=== PATIENT | female | born 1955 | race Caucasian/White ===

== ENCOUNTER 2017-10-15 09:34 | Day surgery (SDC) | payer OTHER, SELFPAY ==
[2017-10-15] VITALS (11 sets, daily range): BP systolic 98–119; BP diastolic 50–78; PULSE 54–85; RESP 12–16; TEMP 36.2–36.9; O2SAT 96–100
--- NOTE | 2017-10-15 | DI.CT.S_ITS ---
PROCEDURE: CT BIOPSY LUNG LT Sedation analgesia for 20 minutes. INDICATIONS: LUNG MASS TECHNIQUE: The indications, alternatives, benefits, risks, and possible complications of the procedure were communicated to the patient. Informed written consent from the patient was obtained and placed in the chart. Continuous EKG and hemodynamic monitoring was started by trained personnel. The patient was brought to the CT suite and career development director spiral CT imaging was performed with localization grid. The appropriate site for percutaneous access to the biopsy target was marked, was prepped and draped sterilely, and was infused with local anaesthesia. Under CT guidance, a core biopsy trocar and needle set was advanced to the biopsy target, and specimen(s) were obtained. The trocar and needle were then removed, and the patient was sent for post-procedure monitoring. COMPARISON: None. FINDINGS: Biopsy site: Left apical lung mass Needle: 20 gauge Temno biopsy needle with introducer trocar. Number of passes: 5 Medications: 1% lidocaine for local anaesthesia. 50 mcg IV Fentanyl and 1.0 mg Versed for conscious sedation for 20 minutes (see nursing record). Complications: None. IMPRESSION: Successful CT-guided biopsy of left apical lung mass. Histopathology pending. No immediate complications. Post biopsy CT scanning revealed no pneumothorax. A 2-1/2 hour delayed chest x-ray reveals no delayed pneumothorax. Patient was asymptomatic and released to home with precautions Dictated by: Chace Witt M.D. on 10/15/2017 at 14:06 Approved by: Chace Witt M.D. on 10/15/2017 at 14:09
--- NOTE | 2017-10-15 | PATH_ITS ---
[facility] Accession Number: [id number] . 01 Material submitted: . LEFT UPPER LUNG MASS . 02 Diagnosis: Left Upper Lung Mass, Needle Core Biopsies: Adenocarcinoma, poorly differentiated, most consistent with lung primary. MRV/10/20/2017 . 02 Comment: As part of routine air quality chemist, Dr. Peguero has reviewed this case and agrees with the above interpretation. Molecular studies will be performed and results issued in an addendum. . The preliminary diagnosis of carcinoma was reported to Dr. Witt's colleague, Dr. Frausto, by Dr. Claudio Givens on 10/17/2017. . 02 Electronically signed: . Claudio Givens MD, PhD, Pathologist NPI- [id number] . 01 Gross description: . LEFT UPPER LUNG MASS: Received in formalin are 4 fragment(s) of davis, soft tissue measuring 1.7 x 0.1 x 0.1 cm to 1.0 x 0.1 x 0.1 cm submitted entirely in 1 cassette(s) /TRC /TRC . 02 Microscopic: . Sections are of fibrotic stroma infiltrated by atypical epithelioid cells in a nested and single cell growth pattern, consistent with carcinoma. To further evaluate the carcinoma cells, a limited panel of immunohistochemical stains are performed, each with an appropriately positive control, with the following results: . TTF-1: Positive. Napsin-A: Positive. CK5/6: Variable, weak. p40: Negative. . The overall morphology and immunophenotype are most consistent with poorly differentiated adenocarcinoma of lung origin. . * This test was developed and its performance characteristics determined by [facility]. It has not been cleared or approved by the U.S. Food and Drug Administration. The FDA has determined that such clearance or approval is not necessary. This test is used for clinical purposes. It should not be regarded as investigational or for research. . 02 Pathologist provided ICD-10: C34.12 . 02 CPT . 470477, P13090, [id number] Performed at: 01 [facility] [address] [id number] MD Jamie Davies MD Phone: [phone] Performed at: 02 [facility] [address] [place] [id number] MD Eder Cleaning MD Phone: [phone]
--- NOTE | 2017-10-15 | DI.RAD.S_ITS ---
PROCEDURE: XR CHEST 1V INDICATIONS: s/p lung bx TECHNIQUE: One view of the chest was acquired. COMPARISON: Outside Facility, RG, XR CXR 3V, 09/29/2017, 17:50. FINDINGS: Surgical changes and devices: None. Lungs and pleura: No pleural effusions or pneumothorax. No evidence of intrathoracic hemorrhage. Lobulated mass in the left upper lobe is unchanged. Pulmonary hyperexpansion again noted. Mediastinum: Mediastinal contours appear normal. Heart size is normal. Bones and chest wall: No suspicious bony lesions. Overlying soft tissues appear unremarkable. IMPRESSION: 1. Delayed imaging post needle biopsy of the left upper lobe mass is negative for pneumothorax. 2. Lobulated left apical/upper lobe mass lesion appears unchanged from 09/29/2017. Histopathology pending. 3. Probable COPD. Dictated by: Chace Witt M.D. on 10/15/2017 at 13:03 Approved by: Chace Witt M.D. on 10/15/2017 at 13:10
--- NOTE | 2017-10-15 13:21 | SUR.PHASEII ---
1245 pt to xray via wheel chair. 1310 pt returned from xray and is sitting in bed. Orthostatic BP's taken per Radiologist's request and WNL
== END 2017-10-15 13:28 ==
LOC: OR 09:35
PROVIDERS: Visit Provider Radiology Therapeutic Radiology
PROC: BB24ZZZ Computerized Tomography (CT Scan) of Bilateral Lungs (ICD-10-PCS; CPT 32408; principal; 2017-10-15 10:30)
DX: C34.12 Malignant neoplasm of upper lobe, left bronchus or lung (principal); C79.31 Secondary malignant neoplasm of brain
CPT/HCPCS: 32405; 71045; 77012

== ENCOUNTER → 2024-06-02 13:27 | Outpatient (CLI) | payer MEDICARE, SELFPAY ==
--- NOTE | 2024-06-02 13:31 | DI.US.S_ITS ---
PROCEDURE: US ART LOW EXT BILAT W/MARCOS INDICATIONS: TECHNIQUE: Color and pulse Doppler interrogation was performed of both lower extremity arterial systems, with image documentation. COMPARISON: None. FINDINGS: Right lower extremity: Common femoral artery: 100 cm/sec, with triphasic flow. Deep femoral artery: 73 cm/sec, with triphasic flow. Proximal superficial femoral artery: 56 cm/sec, with triphasic flow. Mid superficial femoral artery: 87 cm/sec, with triphasic flow. Distal superficial femoral artery: 46 cm/sec, with triphasic flow. Popliteal artery: 58 cm/sec, with triphasic flow. Posterior tibial artery: 24 cm/sec, with biphasic flow. Anterior tibial artery/dorsalis pedis: 32 cm/sec, with biphasic flow. Smith-scale imaging description: Mild degree of plaque scattered throughout the right lower extremity arterial system. MARCOS: 1.0 Left lower extremity: Common femoral artery: 60 cm/sec, with triphasic flow. Deep femoral artery: 62 cm/sec, with triphasic flow. Proximal superficial femoral artery: 70 cm/sec, with triphasic flow. Mid superficial femoral artery: 69 cm/sec, with triphasic flow. Distal superficial femoral artery: 49 cm/sec, with triphasic flow. Popliteal artery: 50 cm/sec, with triphasic flow. Posterior tibial artery: 51 cm/sec, with triphasic flow. Anterior tibial artery/dorsalis pedis: 53 cm/sec, with triphasic flow. Smith-scale imaging description: Mild degree of plaque scattered throughout the left lower extremity arterial system MARCOS: 1.1 IMPRESSION: No hemodynamically significant stenosis involving bilateral lower extremities. Normal bilateral ABIs. Dictated by: Yifan Spencer M.D. on 06/02/2024 at 16:39 Approved by: Yifan Spencer M.D. on 06/02/2024 at 16:42
== END ==
LOC: US 13:30
PROVIDERS: Referring Provider Internal Medicine; Visit Provider Internal Medicine
DX: I73.9 Peripheral vascular disease, unspecified (principal); M79.674 Pain in right toe(s)
CPT/HCPCS: 93922; 93925